=== PATIENT | male | born 1985 | race American Indian/Alaskan Native ===

== ENCOUNTER 2017-10-25 09:41 | Emergency (ER) | payer OTHER ==
[2017-10-25] MEDS ORDERED: Sodium Chloride 0.9% 1,000 ML IV ONE (10:31)
[2017-10-25 11:01] LABS: BASO % 0.4 % (0.0-2.0); EOS # 0.1 K/uL (0.0-0.7); EOS % 1.1 % (0.0-4.0); HEMOGLOBIN 13.7 g/dL (12.0-18.0); LYMPH # 1.7 K/uL (1.0-4.3); LYMPH % 28.2 % (20.0-40.0); MEAN CELL VOLUME 90.1 fL (80.0-94.0); MEAN CORPUSCULAR HEMOGLOBIN 30.5 pg (27.0-31.0); MEAN CORPUSCULAR HGB CONC 33.9 g/dL (33.0-37.0); MONO # 0.6 K/uL (0.0-0.8); MONO % 9.7 % (0.0-10.0); NEUT # 3.7 K/uL (1.8-7.0); NEUT % 60.6 % (50.0-75.0); RBC 4.5 Mil/uL (4.40-5.90); RED CELL DISTRIBUTION WIDTH 13.1 % (11.5-14.5); WHITE BLOOD COUNT 6.1 K/uL (4.8-10.8)
[2017-10-25 11:10] LABS: ALB/GLOB RATIO 1.2 (1.0-2.1); ALT/SGPT 19 U/L (21-72); AST/SGOT 26 U/L (17-59); BLOOD UREA NITROGEN 15 mg/dL (9-20); CALCIUM 9.1 mg/dl (8.6-10.4); GFR AFRICAN-AMERICAN > 60; GFR NON-AFRICAN AMERICAN > 60
[2017-10-25 14:12] VITALS: PULSE 68
--- NOTE | 2017-10-25 14:21 | C.PDOC ---
History Of Present Illness 32-year-old male, PMHx of seizure disorder (on Dilantin and Keppra), brought to the emergency department via ALS s/p witnessed seizure by . Patient states that in the last five months, he has had one seizure monthly, and twice this month. Patient notes he is usually compliant with his seizure meds, but missed two doses of Dilantin this month. He is complaining of a mild headache and left- sided neck pain. Patient denies any tongue biting, bladder/bowel incontinence, nausea/vomiting, fever, dizziness, visual changes. No other complaints at this time. Time Seen by Provider: 10/25/17 09:47 Chief Complaint (Nursing): Seizure History Per: Patient, EMS History/Exam Limitations: no limitations Recent Seizure Activity Began: Just Before Arrival Number Of Seizures: One Quality Of Seizure: Generalized Precipitating Factor(s): Missed Dose Of Anti-seizure Medication Post-ictal Period: Yes Past Medical History Reviewed: Historical Data, Nursing Documentation, Vital Signs Vital Signs: Last Vital Signs Temp 97.0 F L 10/25/17 15:41 Pulse 68 10/25/17 15:41 Resp 18 10/25/17 15:41 BP 116/68 10/25/17 15:41 Pulse Ox 99 10/25/17 15:41 - Medical History PMH: Seizures Family History: States: No Known Family Hx - Social History Hx Alcohol Use: Yes Hx Substance Use: Yes - Immunization History Hx Tetanus Toxoid Vaccination: No Hx Influenza Vaccination: No Hx Pneumococcal Vaccination: No Review Of Systems Except As Marked, All Systems Reviewed And Found Negative. Constitutional: Negative for: Fever, Chills Cardiovascular: Negative for: Chest Pain, Palpitations Respiratory: Negative for: Shortness of Breath Gastrointestinal: Negative for: Nausea, Vomiting, Abdominal Pain Musculoskeletal: Positive for: Neck Pain. Negative for: Back Pain Neurological: Positive for: Seizures, Headache. Negative for: Weakness, Numbness Physical Exam - Physical Exam Appears: Well, Non-toxic, No Acute Distress Skin: Normal Color, Warm, Dry, No Rash Head: Normacephalic Eye(s): bilateral: Normal Inspection, PERRL, EOMI Nose: Normal Oral Mucosa: Moist Tongue: Normal Appearing, No Laceration Lips: Normal Appearing, No Laceration Neck: Normal ROM, No Midline Cervical Tenderness, Supple, Other (Left lateral neck tenderness to palpation, along trapezius muscle ) Cardiovascular: Rhythm Regular Respiratory: Normal Breath Sounds, No Rales, No Rhonchi, No Wheezing Gastrointestinal/Abdominal: Normal Exam, Bowel Sounds, Soft, No Tenderness Extremity: Normal ROM, No Deformity, No Swelling Extremity: Bilateral: Atraumatic, Normal Color And Temperature, Normal ROM Neurological/Psych: Oriented x3, Normal Speech, Normal Cognition ED Course And Treatment - Laboratory Results Result Diagrams: 10/25/17 10:50 10/25/17 10:50 O2 Sat by Pulse Oximetry: 98 (RA) Pulse Ox Interpretation: Normal Progress Note: Blood work ordered and reviewed. Patient given IV NS bolus, PO tylenol and flexeril. Dilantin level subtherapeutic - IV Dilantin loading ordered, and PO Keppra given (level pending due to being send out). Reevaluation Time: 15:30 Reassessment Condition: Improved (On reassessment, patient is resting comfortably, in no pain/distress. No seziures in ED. Explained plan to patient , and he is in agreement with inscrease of Keppra, will follow up with neurologist within 1 week. He understands he should return to ED if symptoms return/worsen.) - Physician Consult Information Physician Contacted: Vikki Arias Outcome Of Conversation: Discussed patient with his neurologist, recommends keeping Dilantin at same dose, and increasing Keppra to 1000mg PO BID. Patientto follow up with him in the office. Disposition Counseled Patient/Family Regarding: Studies Performed, Diagnosis, Need For Followup, Rx Given - Disposition Referrals: Vikki Arias MD [Staff Provider] - Disposition: HOME/ ROUTINE Disposition Time: 15:30 Condition: STABLE Additional Instructions: FOLLOW UP WITH YOUR NEUROLOGIST WITHIN 1 WEEK USE MEDICATIONS DIRECTED RETURN TO ER IF SYMPTOMS WORSEN Prescriptions: Levetiracetam [Keppra] 1,000 mg PO BID #60 tablet Phenytoin, Extended [Dilantin] 100 mg PO TID #90 cer Instructions: Seizures, Adult (DC) Forms: [employer] (Mosotho) Print Language: TURKISH - Clinical Impression Clinical Impression: Tonic-clonic seizure - Scribe Statement The provider has reviewed the documentation as recorded by the Scribe (Shahzad Silva) All medical record entries made by the Scribe were at my direction and personally dictated by me. I have reviewed the chart and agree that the record accurately reflects my personal performance of the history, physical exam, medical decision making, and the department course for this patient. I have also personally directed, reviewed, and agree with the discharge instructions and disposition.
--- NOTE | 2017-10-25 14:45 | C.PDOC ---
Time Seen by Provider: 10/25/17 09:47 Chief Complaint (Nursing): Seizure Past Medical History Vital Signs: Last Vital Signs Temp 97.8 F 10/25/17 12:19 Pulse 68 10/25/17 14:11 Resp 24 10/25/17 14:11 BP 112/54 L 10/25/17 14:11 Pulse Ox 98 10/25/17 14:11 - Medical History PMH: Seizures - Social History Hx Alcohol Use: Yes Hx Substance Use: Yes - Immunization History Hx Tetanus Toxoid Vaccination: No Hx Influenza Vaccination: No Hx Pneumococcal Vaccination: No ED Course And Treatment - Laboratory Results Result Diagrams: 10/25/17 10:50 10/25/17 10:50 O2 Sat by Pulse Oximetry: 98 Disposition - Disposition Forms: [facility] [employer] ([place]occan)
[2017-10-25 15:41] VITALS: BP 116/68; RESP 18; TEMP 97
[2017-10-27 11:27] VITALS: O2SAT 98
== END 2017-10-25 15:45 | disposition home or self-care (01) ==
LOC: C.ER 09:41
DX: G40.409 Other generalized epilepsy and epileptic syndromes, not intractable, without status epilepticus (principal)
CPT/HCPCS: 80053; 80185; 80299; 82550; 82948; 85025; 96361; 96365; 99285; J1165; J7040